=== PATIENT | male | born 1970 | race Caucasian/White ===

== ENCOUNTER 2022-04-12 16:18 | Inpatient (IN) | payer OTHER ==
[2022-04-12 18:14] VITALS: BMI 34.2
[2022-04-12] MEDS ORDERED: guaiFENesin 200 MG/10 ML 10 ML UNIT-DOSE CUPS PO PRN (20:49)
[2022-04-12] MEDS ORDERED: IBUPROFEN 400 MG TABLET (FP) PO PRN (20:49)
[2022-04-12] MEDS ORDERED: LOPERAMIDE HCL 2 MG CAPSULE PO PRN (20:49)
[2022-04-12] MEDS ORDERED: NICOTINE 10 MG CARTRIDGE (INHALER) IH PRN (20:49)
[2022-04-12] MEDS ORDERED: NALOXONE HCL 0.4 MG/ML VIAL IM PRN (20:49)
[2022-04-12] MEDS ORDERED: NICOTINE POLACRILEX 2 MG GUM BUC PRN (20:49)
[2022-04-12] MEDS ORDERED: ONDANSETRON *ODT* 4 MG TABLET SL PRN (20:49)
[2022-04-12] MEDS ORDERED: NALOXONE HCL (KLOXXADO) 8 MG SPRAY NS PRN (20:49)
[2022-04-12] MEDS ORDERED: BISMUTH SUBSALICYLATE 524 MG/30 ML PO PRN (20:49)
[2022-04-12] MEDS ORDERED: MAGNESIUM CITRATE 300 ML BOTTLE PO PRN (20:49)
[2022-04-12] MEDS ORDERED: ACETAMINOPHEN 325 MG TABLET (FP) PO PRN ×2 (20:49)
[2022-04-12] MEDS ORDERED: DICYCLOMINE HCL 10 MG CAPSULE PO PRN (20:49)
[2022-04-12] MEDS ORDERED: P-EPHED 60MG/TRIPROLIDI 2.5MG TABLET PO PRN (20:49)
[2022-04-12] MEDS ORDERED: BENZOCAINE/MENTHOL (CHLORASEPTIC ) LOZENGE MM PRN (20:49)
[2022-04-12] MEDS ORDERED: MAG HYDROX/AL HYDROX/SIMETH 30 ML UNIT-DOSE CUP PO PRN (20:49)
[2022-04-12] MEDS ORDERED: MAGNESIUM HYDROX 2400MG/30ML ORAL SUSPENSION 30 ML CUP PO PRN (20:49)
[2022-04-12] MEDS ORDERED: ACETAMINOPHEN 325 MG TABLET (FP) ONE (22:15)
[2022-04-12] MEDS ORDERED: diazePAM 5 MG TABLET ONE (22:15)
[2022-04-12] MEDS: diazePAM 5 MG TABLET PO ONE (22:23)
[2022-04-12] MEDS: THIAMINE HCL 100 MG TABLET (FP) PO SCH (23:32)
[2022-04-12] MEDS: diazePAM 5 MG TABLET PO SCH (23:33)
[2022-04-12] MEDS: MELATONIN 5 MG TABLETS PO SCH (23:33)
[2022-04-12] MEDS: hydrOXYzine PAMOATE 25 MG CAPSULE (FP) PO SCH (23:45)
[2022-04-13] MEDS: diazePAM 5 MG TABLET PO SCH ×4 (06:19→22:24)
[2022-04-13] MEDS: hydrOXYzine PAMOATE 25 MG CAPSULE (FP) PO SCH ×5 (06:20→22:24)
[2022-04-13] MEDS ORDERED: BUPRENORPHINE/NALOXONE 8 MG/2 MG FILM PACKET SL ONE (10:14)
[2022-04-13] MEDS: PRENATAL VITAMINS W/ FOLIC ACID TABLET (FP) PO SCH (10:37)
[2022-04-13] MEDS: IBUPROFEN 600 MG TABLET (FP) PO PRN (10:40)
[2022-04-13] MEDS: NICOTINE 14 MG/24 HOURS TOPICAL PATCH TD SCH (10:42)
[2022-04-13 11:57] LABS: HEMATOCRIT 38.3 % (35.4-49); HEMOGLOBIN 13.2 GM/dL (11.7-16.9); MCH 32.1 pg (25.7-33.7); MCHC 34.5 g/dl (32.0-35.9); MEAN CELL VOLUME 93.1 fl (80-96); MEAN PLT VOLUME 8.9 fl (7.5-11.1); PLATELET COUNT 163 10^3/uL (134-434); RBC 4.12 M/mm3 (4.00-5.60); RDW 12.8 % (11.9-15.9); WHITE BLOOD COUNT 5.9 K/mm3 (4.0-10.0)
[2022-04-13 12:28] LABS: ALBUMIN 3.6 g/dl (3.4-5.0); BLOOD UREA NITROGEN 23.4 mg/dL (7-18)
[2022-04-13 12:32] LABS: BILIRUBIN,TOTAL 0.5 mg/dL (0.2-1); TOT PROT 6.7 g/dl (6.4-8.2)
[2022-04-13] MEDS: BUPRENORPHINE/NALOXONE 8 MG/2 MG FILM PACKET SL SCH ×2 (14:23→23:19)
[2022-04-13] MEDS: DOCUSATE SODIUM 100 MG CAPSULE (FP) PO SCH (14:43)
[2022-04-13] MEDS: METHOCARBAMOL 500 MG TABLET PO PRN (17:34)
[2022-04-13] MEDS: MELATONIN 5 MG TABLETS PO SCH (22:24)
[2022-04-13] MEDS: THIAMINE HCL 100 MG TABLET (FP) PO SCH (22:24)
[2022-04-14] MEDS: diazePAM 5 MG TABLET PO SCH ×3 (05:57→22:06)
[2022-04-14] MEDS: hydrOXYzine PAMOATE 25 MG CAPSULE (FP) PO SCH ×5 (05:58→22:06)
[2022-04-14] MEDS: BUPRENORPHINE/NALOXONE 8 MG/2 MG FILM PACKET SL SCH ×3 (05:58→22:08)
[2022-04-14] MEDS: DOCUSATE SODIUM 100 MG CAPSULE (FP) PO SCH (10:44)
[2022-04-14] MEDS: PRENATAL VITAMINS W/ FOLIC ACID TABLET (FP) PO SCH (10:44)
[2022-04-14] MEDS: diazePAM 5 MG TABLET PO PRN (10:46)
[2022-04-14] MEDS: IBUPROFEN 600 MG TABLET (FP) PO PRN (10:47)
[2022-04-14] MEDS: NICOTINE 14 MG/24 HOURS TOPICAL PATCH TD SCH (10:49)
[2022-04-14] MEDS: THIAMINE HCL 100 MG TABLET (FP) PO SCH (22:06)
[2022-04-14] MEDS: MELATONIN 5 MG TABLETS PO SCH (22:06)
[2022-04-15] MEDS: diazePAM 5 MG TABLET PO SCH ×2 (05:58→17:42)
[2022-04-15] MEDS: hydrOXYzine PAMOATE 25 MG CAPSULE (FP) PO SCH ×5 (05:58→22:07)
[2022-04-15] MEDS: BUPRENORPHINE/NALOXONE 8 MG/2 MG FILM PACKET SL SCH ×3 (05:59→22:05)
[2022-04-15] MEDS: DOCUSATE SODIUM 100 MG CAPSULE (FP) PO SCH (10:47)
[2022-04-15] MEDS: NICOTINE 14 MG/24 HOURS TOPICAL PATCH TD SCH (10:48)
[2022-04-15] MEDS: PRENATAL VITAMINS W/ FOLIC ACID TABLET (FP) PO SCH (10:48)
[2022-04-15] MEDS: diazePAM 5 MG TABLET PO PRN (10:49)
[2022-04-15 12:59] VITALS: RESP 18
[2022-04-15] MEDS: THIAMINE HCL 100 MG TABLET (FP) PO SCH (22:04)
[2022-04-15] MEDS: MELATONIN 5 MG TABLETS PO SCH (22:05)
[2022-04-16] MEDS: diazePAM 5 MG TABLET PO ONE (05:25)
[2022-04-16] MEDS: hydrOXYzine PAMOATE 25 MG CAPSULE (FP) PO SCH ×2 (05:25→10:05)
[2022-04-16] MEDS: BUPRENORPHINE/NALOXONE 8 MG/2 MG FILM PACKET SL SCH (05:28)
[2022-04-16] MEDS: PRENATAL VITAMINS W/ FOLIC ACID TABLET (FP) PO SCH (10:05)
[2022-04-16] MEDS: METHOCARBAMOL 500 MG TABLET PO PRN (10:05)
[2022-04-16] MEDS: DOCUSATE SODIUM 100 MG CAPSULE (FP) PO SCH (10:05)
[2022-04-16] MEDS: NICOTINE 14 MG/24 HOURS TOPICAL PATCH TD SCH (10:08)
[2022-04-16 10:51] VITALS: BP 116/73; PULSE 64; TEMP 97.7
== END 2022-04-16 11:17 | disposition home or self-care (01) | DRG 773 ==
LOC: YASAS 16:18 → Y6N 21:45
PROVIDERS: ADMIT Allergy & Immunology; ATTEND Surgery
PROC: HZ2ZZZZ Detoxification Services for Substance Abuse Treatment (ICD-10-PCS; principal; 2022-04-12)
DX: F10.230 Alcohol dependence with withdrawal, uncomplicated (principal); F13.230 Sedative, hypnotic or anxiolytic dependence with withdrawal, uncomplicated; F11.20 Opioid dependence, uncomplicated; F14.20 Cocaine dependence, uncomplicated; F17.210 Nicotine dependence, cigarettes, uncomplicated; F19.24 Other psychoactive substance dependence with psychoactive substance-induced mood disorder; K59.03 Drug induced constipation; Z86.19 Personal history of other infectious and parasitic diseases; Z28.310 Unvaccinated for COVID-19
CPT/HCPCS: 36415; 80053; 85027; 86780; 93005; 93010; C9803-CS; U0003; U0005